=== PATIENT | male | born 1945 | race Caucasian/White ===

== ENCOUNTER 2020-08-31 08:49 | Outpatient (NON) | payer MEDICARE, OTHER, SELFPAY ==
[2020-09-01 16:06] LABS: SARS-CoV-2 RNA PCR Positive
== END 2020-08-31 08:50 ==
PROVIDERS: PCP Internal Medicine; Visit Provider Internal Medicine
DX: U07.1 COVID-19 (principal)
CPT/HCPCS: 87635; C9803; U0003

== ENCOUNTER 2022-05-08 21:13 | Emergency (ER) | payer MEDICARE, OTHER, SELFPAY ==
--- NOTE | ~2022-05-08 | XR_ITS ---
EXAMINATION: XR humerus LT DATE: 05/08/2022 22:40 INDICATION: Left upper arm pain. TECHNIQUE: 2 views of left humerus were obtained. COMPARISON: None. FINDINGS: Bone alignment is normal. No fracture. There is mild acromioclavicular joint osteoarthritis . IMPRESSION: 1. Mild acromioclavicular joint osteoarthritis. Reviewed, dictated and finalized at location A.
--- NOTE | ~2022-05-08 | XR_ITS ---
EXAMINATION: XR elbow RT min 3V DATE: 05/08/2022 22:40 INDICATION: Right elbow injury. TECHNIQUE: 4 views of right elbow were obtained. COMPARISON: None. FINDINGS: Bone alignment is normal. No fracture. Joint spaces are normal. There are dystrophic calcif ications at lateral humeral epicondyle. There is soft tissue swelling over the olecranon, consistent with bursitis. IMPRESSION: 1. Olecranon bursitis. Reviewed, dictated and finalized at location A. IMPRESSION: 1. Olecranon bursitis.
--- NOTE | ~2022-05-08 | XR_ITS ---
EXAMINATION: XR ribs LT 2V w CXR 2V DATE: 05/08/2022 22:40 INDICATION: Left chest pain. TECHNIQUE: Frontal and lateral views of the chest and 2 views on 3 radiographs of the left ribs were obtained. COMPARISON: Chest 2 views 09/21/2018 FINDINGS: CHEST TWO VIEWS: There is chronic mild elevation of left hemidiaphragm. A calcified right lung nodule and calcified right hilar lymph nodes are consistent with old granulomatous disease. No pleural effu armando or pneumothorax. The heart size is normal. There is a moderate-sized hiatal hernia. LEFT RIBS: There is no rib fracture. IMPRESSION: 1. No rib fracture. 2. Moderate-sized hiatal hernia. Reviewed, dictated and finalized at location A.
[2022-05-08 22:02] VITALS: BP 151/85; PULSE 90; RESP 16; TEMP 36.1; O2SAT 100
--- NOTE | 2022-05-08 23:30 | ED.FALL ---
HPI - Fall General Chief Complaint: Fall Stated Complaint: fall, knee and elbow pain Time Seen by Provider: 05/08/22 22:56 Source: patient Mode of arrival: ambulatory Limitations: no limitations History of Present Illness HPI Narrative: Patient is a 76-year-old male who presents the ED with report of a fall. Patient reports he was carrying a heavy box, approximately 30 to 35 pounds, when he lost his balance, falling forward hitting a door. He states he landed sort of on the box and then rolled off. No head injury or LOC. Patient complains of pain to his left sided anterior and lateral chest wall, right elbow, and left upper arm. He states he noticed significant swelling to his right elbow, which prompted his presentation to the ED. Patient has not taken anything for pain and does not want anything at this time. Denies any difficulty breathing, abdominal pain, nausea, vomiting, back pain, headache, vision changes, dizziness, lightheadedness. Related Data Allergies Allergy/AdvReac Type Severity Reaction Status Date / Time No Known Allergies Allergy Unverified 09/21/18 02:46 Review of Systems Review of Systems: CONSTITUTIONAL: Denies fever, chills, or sweats. EYES: Denies visual changes. RESPIRATORY: Denies dyspnea. GASTROINTESTINAL: Denies abdominal pain, nausea, vomiting, or diarrhea. SKIN: Denies wounds. MUSCULOSKELETAL: Denies back pain. NEUROLOGIC: Denies headache, dizziness, lightheadedness, numbness, or weakness. All systems reviewed & are unremarkable except as noted in HPI and below PMFSH Past Medical History Medical History (Updated 05/09/22 @ 00:05 by Joycelyn Betancourt PA-C) GERD (gastroesophageal reflux disease) HTN (hypertension) Surgical History Surgical History (Updated 05/09/22 @ 04:09 by Joycelyn Betancourt PA-C) No pertinent past surgical history Social History Social History Smoking status: Current every day smoker Alcohol intake: never Exam Narrative: GENERAL: Well appearing, well-nourished, non-toxic, in no acute distress. HEAD: Normocephalic, atraumatic. EYES: PERRL/EOMI, conjunctivae clear bilaterally. NECK: Supple. No adenopathy, no masses. No cervical midline spinal tenderness. RESPIRATORY: Airway patent, respirations nonlabored. Clear to auscultation bilaterally, no rales, rhonchi, wheezing. No splinting. CARDIOVASCULAR: Regular rate and rhythm without murmurs, rubs, or gallops. Peripheral pulses 2+ and equal bilaterally. ABDOMINAL: Soft, nontender, nondistended, no hepatosplenomegaly. Normoactive BS. MUSCULOSKELETAL: Moves all extremities. Strength/ROM intact. Limited passive range of motion of left shoulder due to pain. Full active flexion range of motion of left shoulder but some limitation in left shoulder abduction active range of motion due to pain. No significant tenderness over left humeral head, along humerus, or left elbow. TTP to tip of R elbow with diffuse localized swelling over olecranon, consistent with bursitis. Full nonpainful ROM of R elbow. Mild tenderness to palpation of L anterior/lateral chest wall along ribs. SKIN: Warm, dry, normal color. No rashes. Small abrasion to R 4th digit. Abrasion over R anterior knee, nontender. Ecchymosis forming over R ventral forearm. NEURO: A&O X3. Speech clear. Cranial nerves II-XII grossly intact. Steady gait. No ataxic movements. PSYCHIATRIC: Appropriate mood and affect. Normal interaction. Course Vital Signs Vital signs: Vital Signs Temperature 97 F L 05/08/22 22:02 Pulse Rate 90 05/08/22 22:02 Respiratory Rate 16 05/08/22 22:02 Blood Pressure 151/85 H 05/08/22 22:02 Pulse Oximetry 100 05/08/22 22:02 Temperature 97 F L 05/08/22 22:02 Pulse Rate 81 05/09/22 00:43 Respiratory Rate 16 05/09/22 00:43 Blood Pressure 151/79 H 05/09/22 00:43 Pulse Oximetry 100 05/09/22 00:43 MDM - Fall MDM Narrative Medical decision making narrative: Katelin
[2022-05-09 00:43] VITALS: BP 151/79; PULSE 81; RESP 16; O2SAT 100
== END 2022-05-09 00:40 | disposition home or self-care (01) ==
LOC: ANHED 05-09 00:17
PROVIDERS: Emergency Provider Emergency Medicine; PCP Internal Medicine
DX: S20.212A Contusion of left front wall of thorax, initial encounter (principal); S49.92XA Unspecified injury of left shoulder and upper arm, initial encounter; M70.21 Olecranon bursitis, right elbow; I10 Essential (primary) hypertension; K21.9 Gastro-esophageal reflux disease without esophagitis; M19.012 Primary osteoarthritis, left shoulder; K44.9 Diaphragmatic hernia without obstruction or gangrene; F17.200 Nicotine dependence, unspecified, uncomplicated; W01.198A Fall on same level from slipping, tripping and stumbling with subsequent striking against other object, initial encounter
CPT/HCPCS: 71046; 71100; 73060; 73080; 99284

== ENCOUNTER 2022-07-11 01:49 | Day surgery (SDC) | payer MEDICARE, OTHER, SELFPAY ==
[2022-06-25 14:58] VITALS: BMI 30.2
--- NOTE | 2022-07-10 17:25 | PM.HPGS ---
History of Present Illness History of Present Illness Consent: Risks, benefits, and alternatives have been discussed and questions answered. Patient agrees to proceed with procedure. Chief complaint: GERD, neoplasm screening Narrative: Maxim Sotelo is a 76 year old male troubled by acid reflux. He is on omeprazole 20 mg per day. Many years ago he had an EGD when he was having dysphagia. He is also due for colon cancer screening. He has history of colon polyps Review of Systems Review of Systems: All systems reviewed & are unremarkable except as noted in HPI and below PMFSH Past Medical History Medical History (Updated 07/10/22 @ 17:26 by Toni Pham MD) GERD (gastroesophageal reflux disease) HTN (hypertension) Surgical History Surgical History (Updated 05/09/22 @ 04:09 by Joycelyn Burciaga PA-C) No pertinent past surgical history Social History Social History Smoking packs per day: 0.5 Smoking cigarettes per day: 10.0 Years smoked: 10 Smoking pack-years: 5.00 Smoking status: Former smoker Tobacco type: cigarettes Alcohol intake: current Alcohol use details: 1-2 beers/month Substance use: never Substance use type: does not use Living arrangements: with family Spiritual care concerns: No Meds Home Medications and Allergies Home Medications Medication Instructions Recorded Confirmed Type amlodipine 5 mg tablet 5 mg PO DAILY 06/25/22 07/11/22 History carvedilol 3.125 mg tablet 3.125 mg PO DAILY 06/25/22 07/11/22 History ergocalciferol (vitamin D2) 1,250 1,250 mcg PO DAILY 06/25/22 07/11/22 History mcg (50,000 unit) capsule losartan 100 1 tablet PO DAILY 06/25/22 07/11/22 History mg-hydrochlorothiazide 25 mg tablet metformin 500 mg tablet 500 mg PO DAILY 06/25/22 07/11/22 History omeprazole 20 mg capsule,delayed 20 mg PO DAILY 06/25/22 07/11/22 History release rosuvastatin 40 mg tablet 40 mg PO DAILY 06/25/22 07/11/22 History Allergies Allergy/AdvReac Type Severity Reaction Status Date / Time No Known Allergies Allergy Verified 07/11/22 10:36 Exam Const: General: alert Orientation/consciousness: patient oriented x3 Resp: Auscultation: clear to auscultation bilaterally Cardio: Rhythm: regular rhythm GI: GI Palp: Yes Soft to palpation and No Tenderness to palpation present (GI) Neuro: General: patient oriented x3 Assessment and Plan Assessment and plan (1) GERD (gastroesophageal reflux disease): Code(s): K21.9 - Gastro-esophageal reflux disease without esophagitis Status: Acute (2) Colon cancer screening: Code(s): Z12.11 - Encounter for screening for malignant neoplasm of colon Status: Acute
[2022-07-11 10:28] VITALS: BP 169/84; PULSE 75; RESP 18; TEMP 36.9; O2SAT 100; BMI 29.4
[2022-07-11] MEDS: LACTATED RINGERS 1,000 ML 150 ML IV CONT (10:48)
[2022-07-11 12:02] LABS: Glucose Point of Care 81 mg/dl (65-105)
--- NOTE | 2022-07-11 12:15 | P.PNAN_ITS ---
Anes - Initial Pre Proc Eval Procedure: Operation Date: 07/11/22 12:30 Proposed Procedures p Esophagogastroduodenoscopy & Screening Colonoscopy - Toni Pham MD Date/Time: 07/11/22 12:15 Surgeon: Toni Pham MD Pre Op Diagnosis: GERD, neoplasm screening Patient Data Age: 76 Gender: M Height: 1.57 m Weight: 73 kg Last Vital Signs Temp 98.5 F 07/11/22 10:28 Pulse 75 07/11/22 10:28 Resp 18 07/11/22 10:28 BP 169/84 H 07/11/22 10:28 Pulse Ox 100 07/11/22 10:28 O2 Del Method Room Air 07/11/22 10:28 Allergies Allergy/AdvReac Type Severity Reaction Status Date / Time No Known Allergies Allergy Verified 07/11/22 10:36 Home Medications Medication Instructions Recorded Confirmed Type amlodipine 5 mg tablet 5 mg PO DAILY 06/25/22 07/11/22 History carvedilol 3.125 mg tablet 3.125 mg PO DAILY 06/25/22 07/11/22 History ergocalciferol (vitamin D2) 1,250 1,250 mcg PO DAILY 06/25/22 07/11/22 History mcg (50,000 unit) capsule losartan 100 1 tablet PO DAILY 06/25/22 07/11/22 History mg-hydrochlorothiazide 25 mg tablet metformin 500 mg tablet 500 mg PO DAILY 06/25/22 07/11/22 History omeprazole 20 mg capsule,delayed 20 mg PO DAILY 06/25/22 07/11/22 History release rosuvastatin 40 mg tablet 40 mg PO DAILY 06/25/22 07/11/22 History Laboratory Tests 07/11/22 11:59 POC Capillary Glucose 81 mg/dl mg/dl (65-105) Patient hx anesthesia problems: none Family hx anesthesia problems: none Results Review: All pre-operative results and documents have been reviewed as part of the pre- operative evaluation. [facility] Past Medical History Medical History (Updated 07/10/22 @ 17:26 by Toni Pham MD) GERD (gastroesophageal reflux disease) HTN (hypertension) Surgical History Surgical History (Updated 05/09/22 @ 04:09 by Joycelyn Burciaga PA-C) No pertinent past surgical history Social History Social History Smoking packs per day: 0.5 Smoking cigarettes per day: 10.0 Years smoked: 10 Smoking pack-years: 5.00 Smoking status: Former smoker Tobacco type: cigarettes Alcohol intake: current Alcohol use details: 1-2 beers/month Substance use: never Substance use type: does not use Living arrangements: with family Spiritual care concerns: No Anes - Eval Final PreProcedure Day of Procedure 07/11/22 12:15 Patient weight: normal Heart: regular rate and rhythm Lungs: clear to auscultation Airway: Mallampati scale class II Neurological: alert and oriented Last oral intake: >/= 8 hours ASA classification: III Emergent: no Anesthetic plan: proceed Anesthesia type and monitoring: general GIVS and standard monitoring Results Review: All pre-operative results and documents have been reviewed as part of the pre- operative evaluation. Informed Consent: The patient's anesthetic plan and its attendant risks and benefits were discussed with the patient/family/POA. Questions were solicited and answers provided to the satisfaction of the patient/family/POA.
[2022-07-11 13:14] VITALS: BP 102/64; PULSE 59; RESP 14; O2SAT 97
[2022-07-11 13:24] VITALS: BP 109/66; PULSE 56; RESP 14; O2SAT 97
--- NOTE | 2022-07-11 13:24 | SUR.OPER ---
EGD START 1245, END 1248 COLONOSCOPY START 1256, END 1311
[2022-07-11 13:34] VITALS: BP 177/66; PULSE 56; RESP 15; O2SAT 95
== END 2022-07-11 13:48 | disposition home or self-care (01) ==
PROVIDERS: PCP Internal Medicine; Visit Provider Internal Medicine Gastroenterology
PROC: 0DJ08ZZ Inspection of Upper Intestinal Tract, Via Natural or Artificial Opening Endoscopic (ICD-10-PCS; CPT 43235; principal; 2022-07-11 12:30)
DX: Z12.11 Encounter for screening for malignant neoplasm of colon (principal); K57.30 Diverticulosis of large intestine without perforation or abscess without bleeding; K51.40 Inflammatory polyps of colon without complications; K21.9 Gastro-esophageal reflux disease without esophagitis; K44.9 Diaphragmatic hernia without obstruction or gangrene; I10 Essential (primary) hypertension; Z79.84 Long term (current) use of oral hypoglycemic drugs; Z87.891 Personal history of nicotine dependence
CPT/HCPCS: 45385; 43239; 82948; 88305; J2704; J7120